=== PATIENT | female | born 1965 | race Caucasian/White ===

== ENCOUNTER 2017-06-07 16:32 | Emergency (ER) | payer OTHER ==
[2017-06-07] MEDS ORDERED: Bacitracin Oint 1 GM U/D Packet TOP ONE (16:54)
[2017-06-07 16:55] VITALS: BP 140/86
--- NOTE | 2017-06-07 17:29 | EDM.PDOC ---
ED HPI GENERAL MEDICAL PROBLEM - General Chief Complaint: Laceration Stated Complaint: R THUMB CUT Time Seen by Provider: 06/07/17 17:25 Source of Information: Reports: Patient, RN Notes Reviewed History Limitations: Reports: No Limitations - History of Present Illness INITIAL COMMENTS - FREE TEXT/NARRATIVE: 51-year-old female presents to emergency department today with a laceration to her right thumb she did this on a piece of sheet metal Right 1-Thumb Pain Score (Numeric/FACES): 3 - Related Data Allergies Allergy/AdvReac Type Severity Reaction Status Date / Time HAIR DYE Allergy Hives Uncoded 10/18/15 19:37 Home Meds: Home Meds Multivitamin with Minerals [Multiple Vitamin] 1 tab PO DAILY 07/18/13 [History] Calcium Carb/Vit D3/Minerals [Calcium 1,200 mg Tablet Chew] 1 tab PO DAILY 08/16 [History] Acetaminophen/HYDROcodone [[place] 325-5 MG] 1 - 2 tab PO Q4H PRN #30 tablet 10/18 [Rx] Adalimumab [Humira] 06/07/17 [History] Folic Acid 2 mg PO DAILY 06/07/17 [History] Methotrexate Sodium [Methotrexate] 15 mg PO WEEKLY 06/07/17 [History] Past Medical History HEENT History: Reports: Impaired Vision Gastrointestinal History: Reports: Bowel Obstruction, Cholelithiasis, Colon Polyp, GERD, Hemorrhoids Genitourinary History: Reports: Renal Calculus [employer]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: Endometriosis, Polycystic Ovaries, Musculoskeletal History: Reports: Arthritis, Other (See Below) Other Musculoskeletal History: left knee arthritis Oncologic (Cancer) History: Reports: Breast Dermatologic History: Reports: Psoriasis - Infectious Disease History Infectious Disease History: Reports: Measles - Past Surgical History Female Surgical History: Reports: Breast Biopsy, Hysterectomy, Salpingo- Oophorectomy Oncologic Surgical History: Reports: Biopsy of Breast, Lumpectomy, Other (See Below) Dermatological Surgical History: Reports: Skin Biopsy Social & Family History - Family History Family Medical History: Unobtainable - Tobacco Use Smoking Status *Q: Never Smoker Second Hand Smoke Exposure: No - Alcohol Use Days Per Week of Alcohol Use: 3 Number of Drinks Per Day: 2 Total Drinks Per Week: 6 - Recreational Drug Use Recreational Drug Use: No ED ROS GENERAL - Review of Systems Review Of Systems: See Below Skin: Reports: Wound Neurological: Reports: No Symptoms ED EXAM, SKIN/RASH Exam: See Below Text/Narrative:: Examination of the right hand she has full range of motion of all digits there is a 1.5 cm laceration on the palmar surface of the digit #1 radial pulses +2 Exam Limited By: No Limitations General Appearance: Alert, WD/WN, No Apparent Distress ED SKIN PROCEDURES - Laceration/Wound Repair Right Finger Lac/Wound length In cm: 1.5 Appearance: Subcutaneous, Linear Distal NVT: Neuro & Vascular Intact, No Tendon Injury Anesthetic Type: Digital Local Anesthesia - Lidocaine (Xylocaine): 1% Plain Local Anesthetic Volume: 2cc Skin Prep: Other (Water) Saline Irrigation (cc's): 60 Exploration/Debridement/Repair: Wound Explored, In a Bloodless Field, Explored to Base Closed with: Sutures Suture Size: 4-0 # of Sutures: 3 Suture Type: Prolene, Interrupted Sterile Dressing Applied: Nurse Tetanus Status Addressed: Yes (2016) Complications: No Course - Vital Signs Last Recorded V/S: Last Vital Signs Temp 97.2 F 06/07/17 17:07 Pulse 107 H 06/07/17 17:07 Resp 16 06/07/17 17:07 BP 140/86 06/07/17 17:07 Pulse Ox 96 06/07/17 17:07 - Orders/Labs/Meds Meds: Medications Discontinued Medications Generic Name Dose Route Start Last Admin Trade Name [place] PRN Reason Stop Dose Admin Bacitracin 1 dose 06/07/17 16:54 06/07/17 17:05 Bacitracin Oint 1 Gm TOP 06/07/17 16:55 1 dose ONETIME ONE Administration Lidocaine HCl 5 ml 06/07/17 16:54 06/07/17 17:05 Xylocaine-Mpf 1% INJECT 06/07/17 16:55 5 ml ONETIME ONE Administration Departure - Departure Time of Disposition: 17:28 Disposition: Home, Self-Care 01 Condition: Good Clinical Impression: Laceration of thumb, right Qualifiers: Encounter type: initial encounter Damage to nail status: with damage Foreign body presence: with foreign body Qualified Code(s): S61.121A - Laceration with foreign body of right thumb with damage to nail, initial encounter - Discharge Information Referrals: Charlotte Ace CNM [Primary Care Provider] - Additional Instructions: Suture removal in 10 days, follow wound care instruction sheet, Tylenol or Motrin as needed for pain control, follow-up with your primary care provider or emergency department for suture removal - Assessment/Plan Plan: Assessment Acuity = acute Site and laterality = 1.5 cm laceration completely through the dermis into the subcutaneous tissue of the right thumb Etiology = trauma with sheet metal Manifestations = none Location of injury = Home Lab values = none Plan Suture removal in 10 days, follow wound care instruction sheet follow-up with primary care emergency department for suture removal This note was dictated using Dianping voice recognition software please call with any questions on syntax or alexandra.
== END 2017-06-07 17:48 | disposition home or self-care (01) ==
LOC: JP.ED 16:32
DX: S61.121A Laceration with foreign body of right thumb with damage to nail, initial encounter (principal); Z91.048 Other nonmedicinal substance allergy status; Z79.899 Other long term (current) drug therapy; W26.8XXA Contact with other sharp object(s), not elsewhere classified, initial encounter
CPT/HCPCS: 12001; 99283-25

== ENCOUNTER 2019-03-30 06:30 | Day surgery (SDC) | payer OTHER ==
[2019-03-30] MEDS ORDERED: Sodium Chloride 0.9% 1,000 ML IV SCH (07:00)
[2019-03-30] MEDS ORDERED: Midazolam 1 MG/ML 2 ML SDV ONE (07:31)
[2019-03-30] MEDS ORDERED: fentaNYL 100 MCG/2 ML SDV ONE (07:31)
[2019-03-30] MEDS ORDERED: Propofol 200 MG/20 ML SDV ONE (07:31)
[2019-03-30 08:54] VITALS: BP 94/68; PULSE 76
--- NOTE | 2019-03-30 10:54 | OR ---
DATE OF PROCEDURE: 03/30/2019 SURGEON: Sushil Segundo MD PROCEDURE: Colonoscopy. FINDINGS: Bleeding polyp in sigmoid colon, approximately 8 mm, completely removed using hot snare wire. COMPLICATIONS: None. SUPERVISOR GARAGE: None. ANESTHESIA: MAC. PREOPERATIVE DIAGNOSIS: Gastrointestinal bleeding. POSTOPERATIVE DIAGNOSIS: Gastrointestinal bleeding. RISKS: Risks, benefits, alternatives, and limitations including, but not limited to infection, bleeding, and perforation were explained to the patient, who wished to proceed. PROCEDURE IN DETAIL: The patient was placed in left lateral decubitus position. Digital rectal exam was performed without abnormality. The scope was introduced atraumatically to the ileocecal valve. A photo was taken. The scope was brought back through the ascending, transverse, descending colon, and retroflexed. In the sigmoid colon, the aforementioned polyp was bleeding a small amount. This was identified and completely removed using the snare. No abnormalities on retroflexion. No other blood noted in the colon. The patient tolerated the procedure well. Sushil Segundo MD /[id number]
== END 2019-03-30 09:00 | disposition home or self-care (01) ==
LOC: JP.SDS 06:30
PROVIDERS: ATTEND Surgery
DX: D12.5 Benign neoplasm of sigmoid colon (principal); Z86.010 Personal history of colon polyps
CPT/HCPCS: 45385; J2250; J2704; J3010; J7030; 88305

== ENCOUNTER 2020-05-26 12:46 | Emergency (ER) | payer OTHER ==
[2020-05-26 12:59] VITALS: BP 111/62; PULSE 70
--- NOTE | 2020-05-26 13:47 | EDM.PDOC ---
ED HPI GENERAL MEDICAL PROBLEM - General Chief Complaint: Abdominal Pain Stated Complaint: SEVERE UPPER ABDOMINAL PAIN Time Seen by Provider: 05/26/20 13:20 Source of Information: Reports: Patient, Family History Limitations: Reports: No Limitations - History of Present Illness INITIAL COMMENTS - FREE TEXT/NARRATIVE: 54-year-old female arrives with intense upper abdominal pain. She had recurring pain similar to this from bile duct spasms several years ago but after a bile duct stent was placed and then removed 6 months later she has not had another episode. This morning at around 9 AM she started developing fairly intense upper abdominal pain, it was not improving after 2 to 3 hours so she called her to bring her in. No vomiting, the abdomen is localized to the epigastric area with no significant radiation. No fevers or chills, no nausea or vomiting. Onset: Sudden (Started fairly suddenly around 3 hours ago) Location: Reports: Abdomen (Upper abdomen) Associated Symptoms: Reports: No Other Symptoms Abdomen Pain Score (Numeric/FACES): 2 - Related Data Allergies Allergy/AdvReac Type Severity Reaction Status Date / Time HAIR DYE Allergy Hives Uncoded 05/26/20 12:58 Home Meds: Home Meds Multivitamin with Minerals [Multiple Vitamin] 1 tab PO DAILY 07/18/13 [History] Adalimumab [Humira] 40 mg SQ Q14D 06/07/17 [History] Aspirin [Halfprin] 81 mg PO DAILY 03/28/19 [History] Betamethasone/Propylene Glyc [Diprolene 0.05%] 1 applic TP BID 03/28/19 [History] Calcium Carbonate/Vitamin D3 [Calcium Carbonate/Vitamin D 600 MG-200 Unit] 2 tab PO DAILY 03/28/19 [History] Glucosam/Chond/Collagen/Hyalur [Glucosamine Chondroitin] 2 tab PO DAILY 03/28/19 [History] Leflunomide [Arava] 20 mg PO DAILY 03/28/19 [History] Mometasone Furoate [Elocon] 1 applic TOP BEDTIME 03/28/19 [History] Past Medical History HEENT History: Reports: Impaired Vision Cardiovascular History: Reports: None Respiratory History: Reports: None Gastrointestinal History: Reports: Bowel Obstruction, Cholelithiasis, Colon Polyp, GERD, Hemorrhoids Genitourinary History: Reports: Renal Calculus [employer]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, Polycystic Ovaries, Musculoskeletal History: Reports: Arthritis, Other (See Below) Other Musculoskeletal History: left knee arthritis Oncologic (Cancer) History: Reports: Breast Dermatologic History: Reports: Psoriasis - Infectious Disease History Infectious Disease History: Reports: Measles - Past Surgical History HEENT Surgical History: Reports: None GI Surgical History: Reports: Appendectomy, Cholecystectomy, Colonoscopy, EGD Other GI Surgeries/Procedures: temporary stent in bile duct Female Surgical History: Reports: Breast Biopsy, Hysterectomy, Salpingo- Oophorectomy Oncologic Surgical History: Reports: Biopsy of Breast, Lumpectomy Other Oncologic Surgeries/Procedures: lymph noes removed left arm Dermatological Surgical History: Reports: Skin Biopsy Social & Family History - Family History Family Medical History: Unobtainable - Tobacco Use Tobacco Use Status *Q: Never Tobacco User - Caffeine Use Caffeine Use: Reports: Coffee - Recreational Drug Use Recreational Drug Use: No ED ROS GENERAL - Review of Systems Review Of Systems: See Below Constitutional: Denies: Fever, Chills HEENT: Reports: No Symptoms Respiratory: Reports: No Symptoms Cardiovascular: Reports: No Symptoms GI/Abdominal: Reports: Abdominal Pain : Reports: No Symptoms Skin: Reports: No Symptoms Neurological: Reports: No Symptoms ED EXAM, GI/ABD - Physical Exam Exam: See Below Text/Narrative:: Patient was acutely distressed on arrival to the emergency room, but when I went in to examine her 1/2-hour later after the nurse eval and history was done, her symptoms were gone. Exam Limited By: No Limitations General Appearance: Alert, No Apparent Distress Eyes: Bilateral: Normal Appearance Respiratory/Chest: No Respiratory Distress, Lungs Clear Cardiovascular: Regular Rate, Rhythm GI/Abdominal Exam: Normal Bowel Sounds, Soft, Non-Tender Neurological: Alert, Oriented Skin Exam: Warm, Dry Course - Vital Signs Last Recorded V/S: Last Vital Signs Temp 98.2 F 05/26/20 12:53 Pulse 70 05/26/20 12:53 Resp 18 05/26/20 12:53 BP 111/62 05/26/20 12:53 Pulse Ox 99 05/26/20 12:53 - Re-Assessments/Exams Free Text/Narrative Re-Assessment/Exam: 05/26/20 15:02 Because her symptoms are completely gone, it leads me to believe this is some type of functional bowel pain or possibly bile duct spasm but what ever was is resolved. Patient agreed to return if it recurs but no work-up is necessary at this time. Departure - Departure Time of Disposition: 13:50 Disposition: Home, Self-Care 01 Clinical Impression: Abdominal pain Qualifiers: Abdominal location: upper abdomen, unspecified Qualified Code(s): R10.10 - Upper abdominal pain, unspecified - Discharge Information Instructions: Abdominal Pain, Adult, [id number] Referrals: Charlotte Ace CNM [Primary Care Provider] - Forms: ED Department Discharge Care Plan Goals: Advance diet slowly today, increase activity as tolerated and return anytime if pain recurs and is persistent. Sepsis Event Note (ED) - Evaluation Sepsis Screening Result: No Definite Risk - Focused Exam Vital Signs: Vital Signs Temp Pulse Resp BP Pulse Ox 05/26/20 12:53 98.2 F 70 18 111/62 99
== END 2020-05-26 13:56 | disposition home or self-care (01) ==
LOC: JP.ED 12:46
DX: R10.13 Epigastric pain (principal); M19.90 Unspecified osteoarthritis, unspecified site; Z79.82 Long term (current) use of aspirin; Z91.048 Other nonmedicinal substance allergy status
CPT/HCPCS: 99282; 99283

== ENCOUNTER 2022-07-02 08:10 | Day surgery (SDC) | payer OTHER ==
[2022-07-02] MEDS ORDERED: Dextrose 5%-Lactated Ringers 1,000 ML IV SCH (09:00)
[2022-07-02] MEDS ORDERED: Midazolam 1 MG/ML 2 ML SDV ONE (10:11)
[2022-07-02] MEDS ORDERED: fentaNYL 50 MCG/ML SDV ONE (10:11)
[2022-07-02] MEDS ORDERED: Propofol 200 MG/20 ML SDV ONE (10:11)
[2022-07-02 11:47] VITALS: BP 128/72; PULSE 84
== END 2022-07-02 12:06 | disposition home or self-care (01) ==
LOC: JP.SDS 08:10
PROVIDERS: ATTEND Surgery
DX: Z12.11 Encounter for screening for malignant neoplasm of colon (principal); K57.30 Diverticulosis of large intestine without perforation or abscess without bleeding; Z86.010 Personal history of colon polyps
CPT/HCPCS: 45378; J2250; J2704; J3010; J7121

== ENCOUNTER 2022-12-11 11:37 | Emergency (ER) | payer BC, OTHER ==
[2022-12-11] MEDS ORDERED: Sodium Chloride 0.9% 10 ML Syringe FLUSH PRN (12:09)
[2022-12-11] MEDS ORDERED: Ketorolac 30 MG/ML SDV IVPUSH ONE (12:10)
[2022-12-11] MEDS ORDERED: Ondansetron 4 MG/2 ML SDV IVPUSH ONE (12:10)
[2022-12-11] MEDS ORDERED: Sodium Chloride 0.9% 1,000 ML IV ONE (12:10)
[2022-12-11 12:22] LABS: BASOPHILS ABSOLUTE AUTO 0.07 K/uL (0.00-0.10); BASOPHILS PERCENT AUTO 0.8 % (0.1-1.3); EOSINOPHILS ABSOLUTE AUTO 0.03 K/uL (0.00-0.40); EOSINOPHILS PERCENT AUTO 0.3 % (0.0-5.4); HEMATOCRIT 39.1 % (34.3-46.0); HEMOGLOBIN 13.5 g/dL (11.2-15.5); IMMATURE GRAN ABSOLUTE AUTO 0.06 K/uL (0.00-0.23); IMMATURE GRAN PERCENT AUTO 0.7 % (0.0-0.7); LYMPHOCYTES ABSOLUTE AUTO 1.53 K/uL (0.8-3.3); LYMPHOCYTES PERCENT AUTO 17.2 % (11.4-47.7); MEAN CORPUSCULAR HGB CONC 34.5 g/dL (31.6-35.5); MEAN CORPUSCULAR VOLUME 89.7 fL (81.4-99.0); MONOCYTES ABSOLUTE AUTO 0.64 K/uL (0.20-0.90); MONOCYTES PERCENT AUTO 7.2 % (3.3-12.6); NEUTROPHILS ABSOLUTE AUTO 6.57 K/uL (1.0-7.6); NEUTROPHILS PERCENT AUTO 73.8 % (40.0-78.1); PLATELET COUNT,PLT 313 K/uL (130-375); RED BLOOD CELL COUNT 4.36 M/uL (3.77-5.24); WHITE BLOOD CELL COUNT,WBC 8.9 K/uL (3.2-11.0)
[2022-12-11 12:39] LABS: ANION GAP 11.7 mmol/L (5.0-14.0); C-REACTIVE PROTEIN 0.12 mg/dL (0.0-0.3); CALCIUM 8.6 mg/dL (8.5-10.1); CREATININE 0.6 mg/dL (0.6-1.0); EST CRCL DRUG DOSING (CG) 94.51 mL/min; POTASSIUM,K 3.7 mmol/L (3.6-5.2)
[2022-12-11 13:50] LABS: APPEARANCE,URINE SLIGHTLY CLOUDY (CLEAR); BILIRUBIN,URINE NEGATIVE (NEGATIVE); COLOR,URINE YELLOW (YELLOW); GLUCOSE,URINE NEGATIVE (NEGATIVE); KETONES,URINE NEGATIVE (NEGATIVE); LEUKOCYTE ESTERASE,URINE NEGATIVE (NEGATIVE); NITRITE,URINE NEGATIVE (NEGATIVE); OCCULT BLOOD,URINE LARGE (NEGATIVE); PROTEIN,URINE TRACE mg/dL (NEGATIVE); UROBILINOGEN,URINE 0.2 EU/dL (0.2-1.0)
[2022-12-11 13:55] LABS: AMORPHOUS SEDIMENT,URINE RARE; BACTERIA,URINE NOT SEEN; EPITHELIAL CELLS,URINE NOT SEEN; MUCUS,URINE NOT SEEN; RBC,URINE >100 (0-5); WBC,URINE 0-5 (0-5)
[2022-12-11] MEDS ORDERED: Sodium Chloride 0.9% 10 ML Syringe FLUSH ONE (14:11)
[2022-12-11] MEDS ORDERED: Sodium Chloride 0.9% 50 ML IV SCH (14:15)
[2022-12-11] MEDS ORDERED: Iopamidol 612 MG/ML 100 ML Bottle IV SCH (14:15)
[2022-12-11 15:24] VITALS: BP 116/78; PULSE 55
== END 2022-12-11 16:21 | disposition home or self-care (01) ==
LOC: JP.ED 11:37
DX: N13.2 Hydronephrosis with renal and ureteral calculous obstruction (principal); M19.90 Unspecified osteoarthritis, unspecified site; Z86.16 Personal history of COVID-19; Z91.041 Radiographic dye allergy status; Z79.899 Other long term (current) drug therapy; Z79.82 Long term (current) use of aspirin
CPT/HCPCS: 36415; 74176; 74178; 80048; 81001; 85025; 86140; 96361; 96374; 96375; 99284; J1885; J2405; J3490; J7030; Q9967

== ENCOUNTER 2023-02-26 13:41 | Emergency (ER) | payer BC ==
[2023-02-26 13:58] VITALS: BP 163/87; PULSE 107
== END 2023-02-26 16:18 | disposition home or self-care (01) ==
LOC: JP.ED 13:41
DX: T83.192A Other mechanical complication of indwelling ureteral stent, initial encounter (principal); Z86.16 Personal history of COVID-19; Z90.710 Acquired absence of both cervix and uterus; Z90.49 Acquired absence of other specified parts of digestive tract; Z79.899 Other long term (current) drug therapy; Z91.048 Other nonmedicinal substance allergy status; Z91.041 Radiographic dye allergy status
CPT/HCPCS: 99283